=== PATIENT | female | born 1990 | race Caucasian/White ===

== ENCOUNTER 2024-05-15 16:59 | Emergency (ER) | payer OTHER, SELFPAY ==
[2024-05-15] MEDS ORDERED: prednisoLONE 15 MG/5 ML UDCUP ONE (17:33)
== END 2024-05-15 17:36 | disposition home or self-care (01) ==
LOC: BURERS 16:59
DX: L25.9 Unspecified contact dermatitis, unspecified cause (principal)
CPT/HCPCS: 99282; J7510

== ENCOUNTER 2024-08-13 00:33 | Emergency (ER) | payer OTHER, SELFPAY ==
[2024-08-13] MEDS ORDERED: Ondansetron ODT 4 MG TAB ONE (00:52)
== END 2024-08-13 01:45 | disposition home or self-care (01) ==
LOC: BURERS 00:33
DX: R11.2 Nausea with vomiting, unspecified (principal)
CPT/HCPCS: 99283; Q0162